=== PATIENT | female | born 1955 | race Caucasian/White ===

== ENCOUNTER 2018-12-24 08:20 | Outpatient (CLI) | payer BC ==
[2018-12-24 10:03] LABS: Estimated GFR-MDRD - POC Greater than 90
[2018-12-24] MEDS ORDERED: Gadobenate Dimeglumine 529 MG/1 ML (20ML VIAL) ONE (10:25)
--- NOTE | 2018-12-24 11:27 | MRI ---
MRI OF THE ABDOMEN WITHOUT AND WITH CONTRAST: History: Cholelithiasis, choledocholithiasis. Technique: Multiplanar, multisequence MR images were obtained of the abdomen without and with IV cont rast. FINDINGS: The gallbladder is filled with multiple gallstones. The common bile duct is enlarged measuring 8-9 mm in size. In the distal common bile duct near the ampulla of bladder there are at least two filling d efects which likely represent gallstones within the common bile duct. Mild central intrahepatic bilia ry dilatation is seen. The pancreatic duct is normal in caliber. No focal liver lesions are seen. The kidneys, adrenal glands, spleen and pancreas are unremarkable. N o abnormal enhancement is seen on this examination. No abdominal adenopathy is seen. No marrow signal abnormality is present. IMPRESSION: 1. Cholelithiasis with choledocholithiasis resulting in enlargement of the biliary tree. POS: SAMUEL
== END 2018-12-24 08:21 | disposition home or self-care (01) ==
LOC: MRI 08:20
PROVIDERS: ATTEND Internal Medicine Gastroenterology
DX: K80.70 Calculus of gallbladder and bile duct without cholecystitis without obstruction (principal); K83.8 Other specified diseases of biliary tract
CPT/HCPCS: 74183; 82565; A9577

== ENCOUNTER 2019-01-02 06:41 | Day surgery (SDC) | payer BC ==
[2019-01-01 11:56] VITALS: BMI 17.6
[2019-01-02] MEDS ORDERED: Indomethacin 50 MG SUPP ONE (09:02)
[2019-01-02] MEDS ORDERED: Iothalamate Meglumine 60% 50 ML VIAL FS ONE (09:02)
[2019-01-02] MEDS ORDERED: Fentanyl 100 MCG/2 ML VIAL ONE (09:13)
--- NOTE | 2019-01-02 10:58 | OP ---
DATE OF PROCEDURE: 01/02/2019 PREOPERATIVE DIAGNOSIS: Choledocholithiasis by CT and MRCP. DESCRIPTION OF PROCEDURE: After informed consent was obtained, the patient was placed in a left lateral decubitus position. Anesthesia administered per the Anesthesia Department. Side-viewing endoscope was inserted into the esophagus under direct visualization with ease and passed to the second portion of the duodenum with ease. There was a mucosal fold that seemed to be thickened in the second portion of the duodenum. This was biopsied after the ERCP with forward-viewing scope. A tapered-tip cannula was inserted into the common duct and cholangiogram revealed two filling defects. Sphincterotomy was performed and the duct was swept with a 12 mm balloon unsuccessfully revealing the stones. The papillotome was reinserted and the sphincterotomy extended. Then, the balloon was passed and was successful at removing both stones. As previously mentioned, the side-viewing scope was then removed and forward-viewing scope was used to do the biopsies of the enlarged duodenal fold. ASSESSMENT: 1. Choledocholithiasis-status post sphincterotomy and stone extraction. 2. Enlarged duodenal fold in the second portion duodenum-status post biopsy. RECOMMENDATIONS: 1. Await histopathology. 2. Follow up in the office in 1 months' time to discuss possible cholecystectomy and results of histopathology. Job ID: [id number]
--- NOTE | 2019-01-02 11:51 | RAD ---
ERCP ONE VIEW: HISTORY: Cholelithiasis with choledocholithiasis. TECHNIQUE: This is a single ERCP film. FINDINGS: It shows contrast opacifying a portion of the nondilated common duct. The distal half of the duct is not seen. I do not see any obvious stones. IMPRESSION: Limited examination. Partial filling of a nondilated common duct. POS: T[facility]
--- NOTE | 2019-01-02 16:18 | EKG ---
Test Reason : PREOP Blood Pressure : / mmHG Vent. Rate : 087 BPM Atrial Rate : 087 BPM P-R Int : 162 ms QRS Dur : 090 ms QT Int : 372 ms P-R-T Axes : 083 065 073 degrees QTc Int : 447 ms Normal sinus rhythm Normal ECG No previous ECGs available Confirmed by DR. Rhonda CURIEL ([id number]) on 01/02/2019 4:18:19 PM Referred By: DAVI Confirmed By:DR. Rhonda CURIEL
[2019-01-02] MEDS ORDERED: PHENYLEPHRINE-NS 100 MCG/ML 10 ML SYRINGE ONE (17:16)
[2019-01-02] MEDS ORDERED: PROPOFOL 200 MG/20 ML VIAL ONE (17:16)
[2019-01-02] MEDS ORDERED: Rocuronium Bromide 10 MG/ML (10ML VIAL) ONE (17:16)
[2019-01-02] MEDS ORDERED: Dexamethasone 20 MG/5 ML VIAL ONE (17:16)
[2019-01-02] MEDS ORDERED: ePHEDrine 50 MG/ML VIAL ONE (17:16)
[2019-01-02] MEDS ORDERED: Lidocaine 1% PF 5 ML VIAL ONE (17:16)
[2019-01-02] MEDS ORDERED: Ondansetron PF 4 MG/2 ML Vial ONE (17:16)
[2019-01-02] MEDS ORDERED: Glycopyrrolate 0.2 MG/ML 5 ML SYRINGE ONE (17:16)
== END 2019-01-02 13:00 | disposition home or self-care (01) ==
LOC: SDC 06:41
PROVIDERS: ATTEND Internal Medicine Gastroenterology
PROC: 0FC98ZZ Extirpation of Matter from Common Bile Duct, Via Natural or Artificial Opening Endoscopic (ICD-10-PCS; principal; 2019-01-02)
PROC: 0F798ZZ Dilation of Common Bile Duct, Via Natural or Artificial Opening Endoscopic (ICD-10-PCS; principal; 2019-01-02)
PROC: 0FBC8ZX Excision of Ampulla of Vater, Via Natural or Artificial Opening Endoscopic, Diagnostic (ICD-10-PCS; principal; 2019-01-02)
DX: K80.50 Calculus of bile duct without cholangitis or cholecystitis without obstruction (principal); K29.80 Duodenitis without bleeding; J44.9 Chronic obstructive pulmonary disease, unspecified; I73.9 Peripheral vascular disease, unspecified; Z79.899 Other long term (current) drug therapy
CPT/HCPCS: 74330; 88305; 93005; 93010; J1100; J2001; J2405; J2704; J3010; J3490; Q9961